=== PATIENT | male | born 1985 | race Caucasian/White ===

== ENCOUNTER 2017-03-14 10:15 | Emergency (ER) | payer SELFPAY ==
[~2017-03-14] VITALS: Ht 182.9 cm; Wt 95.0 kg
[2017-03-14 10:16] VITALS: BP 163/79; PULSE 76; RESP 18; TEMP 98.6; O2SAT 100
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
[2017-03-14 15:06] VITALS: BP 158/79
== END 2017-03-14 15:14 | disposition home or self-care (01) ==
LOC: NEPD 10:15
DX: S02.652A Fracture of angle of left mandible, initial encounter for closed fracture (principal); S02.641A Fracture of ramus of right mandible, initial encounter for closed fracture; W22.8XXA Striking against or struck by other objects, initial encounter
CPT/HCPCS: 70486; 99284